=== PATIENT | female | born 1945 | race Caucasian/White ===

== ENCOUNTER → 2019-02-16 | Outpatient (CLI) | payer OTHER ==
[~2019-02-16] MED LIST: CALCIUM + D SO1 EACH PO; CRESTOR10 MG; GARLIC OIL1000 MG PO; LIPITOR40 MG PO; LISINOPRIL5 MG; OXYCODONE HCL 55 MG PO; PRINIVIL5 MG PO; VITAMIN D3400 UNIT PO
== END ==
LOC: M.RAD 11:48
DX: Z12.31 Encounter for screening mammogram for malignant neoplasm of breast (principal)